=== PATIENT | male | born 1960 | race American Indian/Alaskan Native ===

== ENCOUNTER 2016-11-06 20:57 | Emergency (ER) | payer MEDICAID ==
[2016-11-06 22:19] LABS: Albumin 3.7 g/dL (3.9-5); Albumin/Globulin Ratio 1.1 %; BUN/Creatinine Ratio 10.66; Bilirubin,Total 0.2 mg/dL (0.1-1.2); Calcium 8.7 mg/dL (8.4-10.2); Chloride 101.4 mmol/L (98-107); Potassium 4.4 mmol/L (3.6-5.0); Total Protein 7.1 g/dL (6.3-8.2)
[2016-11-06 22:24] LABS: Eosinophils % (Auto) 2.3 % (0.0-4.3); Hematocrit 34.6 % (35.5-45.6); Hemoglobin 11.2 gm/dl (11.8-15.2); Mean Corpuscular HGB Conc 32 % (32-34); Mean Corpuscular Volume 76 fl (84-94); Platelet Count 291 K/mm3 (140-440); Red Blood Count 4.55 M/mm3 (3.65-5.03); Red Cell Distribution Width 16.1 % (13.2-15.2); White Blood Count 7.8 K/mm3 (4.5-11.0)
[2016-11-06 22:41] LABS: Mean Corpuscular Hemoglobin 25 pg (28-32)
[2016-11-06] MEDS ORDERED: PEPCID PO ONE (23:50)
[2016-11-06] MEDS ORDERED: ULTRAM PO ONE (23:50)
--- NOTE | 2016-11-07 00:01 | Emergency Department Report ---
ED Psych HPI - General Chief Complaint: Psych Stated Complaint: ABD PAIN Time Seen by Provider: 11/06/16 23:30 Source: patient Mode of arrival: Ambulatory Limitations: No Limitations - History of Present Illness Initial Comments: 56-year-old male with a past medical history of diabetes, hypertension, and psychiatric disorder presents to the hospital complains of hallucinations, suicidal ideation, and abdominal pain. Patient stated he has been here reports intermittent times one year. They have been increased for the last several days telling him to give himself by overdose and stabbing. Patient has homicidal ideation towards one particular person. Patient has 3 previous attempts in the past including cutting his wrist, overdosing, and thinking about using bleach in a syringe. Patient complains of 4/10 upper abdominal pain which he describes as reflux. Pain worse with palpation. Patient has been experiencing pain for the past 2-3 days. Patient has 4 episodes of vomiting yesterday but none today. Patient is having intermittent diarrhea. No reports of melena, hematochezia, hematemesis, or fever. Patient has been out of his psychiatric medications and insulin for 2-3 months. He has been compliant with his blood pressure medication lisinopril. - Related Data Home Medications Medication Instructions Recorded Confirmed Last Taken Insulin Aspart Protam & Aspart 8 units SQ QAC 05/22/16 11/07/16 Unknown [NovoLOG Mix 70-30 Flexpen] Insulin Glargine [Lantus] 20 unit SUB-Q QHS 05/22/16 11/07/16 Unknown Lisinopril [Zestril TAB] 40 tab PO QDAY 05/22/16 11/07/16 Unknown Quetiapine Fumarate [Seroquel] 300 mg PO QDAY 05/22/16 11/07/16 Unknown Allergies Allergy/AdvReac Type Severity Reaction Status Date / Time ibuprofen [From Motrin] AdvReac Vomiting Verified 11/07/16 05:06 ED Review of Systems ROS: Stated complaint: ABD PAIN Other details as noted in HPI Comment: All other systems reviewed and negative Other: Constitutional: No fevers chills Eyes: No eye pain visual changes ENT: No ear pain or throat pain Neck: Denies pain Respiratory: Denies cough wheezing shortness of breath Cardiovascular: Denies chest pain, palpitations, syncope GI: As per HPI : Denies dysuria Musculoskeletal: Denies back pain, joint swelling Skin: Denies rash, lesions, erythema Neurologic: Denies headache, numbness, weakness Psychiatric: As per HPI ED Past Medical Hx - Past Medical History Previous Medical History?: Yes Hx Hypertension: Yes Hx Diabetes: Yes Hx Psychiatric Treatment: Yes (SI) - Surgical History Past Surgical History?: Yes Additional Surgical History: Rt knee - Social History Smoking Status: Current Every Day Smoker Substance Use Type: Alcohol - Medications Home Medications: Home Medications Medication Instructions Recorded Confirmed Last Taken Type Insulin Aspart Protam & Aspart 8 units SQ QAC 05/22/16 11/07/16 Unknown History [NovoLOG Mix 70-30 Flexpen] Insulin Glargine [Lantus] 20 unit SUB-Q QHS 05/22/16 11/07/16 Unknown History Lisinopril [Zestril TAB] 40 tab PO QDAY 05/22/16 11/07/16 Unknown History Quetiapine Fumarate [Seroquel] 300 mg PO QDAY 05/22/16 11/07/16 Unknown History ED Physical Exam - General Limitations: No Limitations - Other Other exam information: General: No limitations, patient is alert in no acute distress Head exam: Atraumatic, normocephalic Eyes exam: Normal appearance ENT: Moist mucous membrane, normal oropharynx Neck exam: Normal inspection, full range of motion Respiratory exam: Clear to auscultation bilateral, no wheezes, rales, crackles Cardiovascular: Normal rate and rhythm, normal heart sounds Abdomen: Soft, nondistended, mild epigastric tenderness, with normal bowel sounds, no rebound, or guarding Extremity: Full range of motion normal inspection no deformity Back: Normal Inspection, full range of motion, no tenderness Neurologic: Alert, oriented x3, cranial nerves intact, no motor or sensory deficit Psychiatric: normal affect, normal mood Skin: Warm, dry, intact ED Course Vital Signs 11/06/16 11/06/16 11/07/16 21:25 22:25 00:41 Temperature 98.4 F 98.8 F Pulse Rate 94 H 98 H Respiratory 20 16 20 Rate Blood Pressure Blood Pressure 157/105 154/89 [Right] O2 Sat by Pulse 100 95 Oximetry 11/07/16 11/07/16 11/07/16 01:29 05:33 11:35 Temperature Pulse Rate 88 84 90 Respiratory 20 24 Rate Blood Pressure 119/70 Blood Pressure 146/92 173/93 [Right] O2 Sat by Pulse 95 98 Oximetry 11/07/16 11/07/16 11/08/16 12:30 22:00 10:40 Temperature 98.5 F Pulse Rate 73 79 Respiratory 24 18 Rate Blood Pressure 146/66 Blood Pressure 93/66 [Right] O2 Sat by Pulse 98 98 Oximetry 11/08/16 12:45 Temperature Pulse Rate Respiratory 20 Rate Blood Pressure Blood Pressure [Right] O2 Sat by Pulse 98 Oximetry - Reevaluation(s) Reevaluation #1: 11/07/16 05:05 I am still awaiting urine collection at this time. Pt states that he provided a urine and refuses to provide another sample. Lab does not have the urine in the lab and I tried to explain to patient that we just need him to urinate in a cup when he has to go again. Patient is refusing stating he would not urinate in a cup that he is aggravated that we keep asking him for urine. We are at a standstill and cannot progress until we get a urine sample. Patient is becoming more belligerent and therefore Ant, Lucyl, and Raulito ordered so that we may obtain the urine and will forward with medical clearance. ED Medical Decision Making - Lab Data Result diagrams: 11/06/16 21:40 11/06/16 21:40 Lab Results 11/06/16 11/06/16 11/06/16 Range/Units 21:40 21:40 21:40 WBC 7.8 (4.5-11.0) K/mm3 RBC 4.55 (3.65-5.03) M/mm3 Hgb 11.2 L (11.8-15.2) gm/dl Hct 34.6 L (35.5-45.6) % MCV 76 L (84-94) fl MCH 25 L (28-32) pg MCHC 32 (32-34) % RDW 16.1 H (13.2-15.2) % Plt Count 291 (140-440) K/mm3 Lymph % (Auto) 18.1 (13.4-35.0) % Bay % (Auto) 8.3 H (0.0-7.3) % Eos % (Auto) 2.3 (0.0-4.3) % Baso % (Auto) 1.0 (0.0-1.8) % Lymph # 1.4 (1.2-5.4) K/mm3 Bay # 0.6 (0.0-0.8) K/mm3 Eos # 0.2 (0.0-0.4) K/mm3 Baso # 0.1 (0.0-0.1) K/mm3 Seg Neutrophils % 70.3 H (40.0-70.0) % Seg Neutrophils # 5.5 (1.8-7.7) K/mm3 Sodium 135 L (137-145) mmol/L Potassium 4.4 (3.6-5.0) mmol/L Chloride 101.4 (98-107) mmol/L Carbon Dioxide 19 L (22-30) mmol/L Anion Gap 19 mmol/L BUN 16 (9-20) mg/dL Creatinine 1.5 (0.8-1.5) mg/dL Estimated GFR 58 ml/min BUN/Creatinine Ratio 10.66 % Glucose 277 H (75-100) mg/dL POC Glucose (70-105) Calcium 8.7 (8.4-10.2) mg/dL Total Bilirubin 0.2 (0.1-1.2) mg/dL AST 29 (5-40) units/L ALT 30 (7-56) units/L Alkaline Phosphatase 122 (35-129) units/L Total Protein 7.1 (6.3-8.2) g/dL Albumin 3.7 L (3.9-5) g/dL Albumin/Globulin Ratio 1.1 % Lipase 56 (13-60) units/L Urine Color (Yellow) Urine Turbidity (Clear) Urine pH (5.0-7.0) Ur Specific [place] (1.003-1.030) Urine Protein (Negative) mg/dL Urine Glucose (UA) (Negative) mg/dL Urine Ketones (Negative) mg/dL Urine Blood (Negative) Urine Nitrite (Negative) Urine Bilirubin (Negative) Urine Urobilinogen (<2.0) mg/dL Ur Leukocyte Esterase (Negative) Urine WBC (Auto) (0.0-6.0) /HPF Urine RBC (Auto) (0.0-6.0) /HPF Urine Opiates Screen Urine Methadone Screen Ur Barbiturates Screen Ur Phencyclidine Scrn Ur Amphetamines Screen U Benzodiazepines Scrn Urine Cocaine Screen U Marijuana (THC) Screen Drugs of Abuse Note Plasma/Serum Alcohol < 0.01 (0-0.07) gm% 11/07/16 11/07/16 11/07/16 Range/Units 00:28 05:32 05:32 WBC (4.5-11.0) K/mm3 RBC (3.65-5.03) M/mm3 Hgb (11.8-15.2) gm/dl Hct (35.5-45.6) % MCV (84-94) fl MCH (28-32) pg MCHC (32-34) % RDW (13.2-15.2) % Plt Count (140-440) K/mm3 Lymph % (Auto) (13.4-35.0) % Bay % (Auto) (0.0-7.3) % Eos % (Auto) (0.0-4.3) % Baso % (Auto) (0.0-1.8) % Lymph # (1.2-5.4) K/mm3 Bay # (0.0-0.8) K/mm3 Eos # (0.0-0.4) K/mm3 Baso # (0.0-0.1) K/mm3 Seg Neutrophils % (40.0-70.0) % Seg Neutrophils # (1.8-7.7) K/mm3 Sodium (137-145) mmol/L Potassium (3.6-5.0) mmol/L Chloride (98-107) mmol/L Carbon Dioxide (22-30) mmol/L Anion Gap mmol/L BUN (9-20) mg/dL Creatinine (0.8-1.5) mg/dL Estimated GFR ml/min BUN/Creatinine Ratio % Glucose (75-100) mg/dL POC Glucose 270 H (70-105) Calcium (8.4-10.2) mg/dL Total Bilirubin (0.1-1.2) mg/dL AST (5-40) units/L ALT (7-56) units/L Alkaline Phosphatase (35-129) units/L Total Protein (6.3-8.2) g/dL Albumin (3.9-5) g/dL Albumin/Globulin Ratio % Lipase (13-60) units/L Urine Color Yellow (Yellow) Urine Turbidity Clear (Clear) Urine pH 5.0 (5.0-7.0) Ur Specific [place] 1.019 (1.003-1.030) Urine Protein 100 mg/dl (Negative) mg/dL Urine Glucose (UA) 50 (Negative) mg/dL Urine Ketones Neg (Negative) mg/dL Urine Blood Neg (Negative) Urine Nitrite Neg (Negative) Urine Bilirubin Neg (Negative) Urine Urobilinogen 2.0 (<2.0) mg/dL Ur Leukocyte Esterase Neg (Negative) Urine WBC (Auto) < 1.0 (0.0-6.0) /HPF Urine RBC (Auto) 1.0 (0.0-6.0) /HPF Urine Opiates Screen Presumptive negative Urine Methadone Screen Presumptive negative Ur Barbiturates Screen Presumptive negative Ur Phencyclidine Scrn Presumptive negative Ur Amphetamines Screen Presumptive negative U Benzodiazepines Scrn Presumptive negative Urine Cocaine Screen Presumptive positive U Marijuana (THC) Screen Presumptive negative Drugs of Abuse Note Disclamer Plasma/Serum Alcohol (0-0.07) gm% 11/07/16 11/07/16 11/07/16 Range/Units 06:13 11:32 17:27 WBC (4.5-11.0) K/mm3 RBC (3.65-5.03) M/mm3 Hgb (11.8-15.2) gm/dl Hct (35.5-45.6) % MCV (84-94) fl MCH (28-32) pg MCHC (32-34) % RDW (13.2-15.2) % Plt Count (140-440) K/mm3 Lymph % (Auto) (13.4-35.0) % Bay % (Auto) (0.0-7.3) % Eos % (Auto) (0.0-4.3) % Baso % (Auto) (0.0-1.8) % Lymph # (1.2-5.4) K/mm3 [place] # (0.0-0.8) K/mm3 Eos # (0.0-0.4) K/mm3 Baso # (0.0-0.1) K/mm3 Seg Neutrophils % (40.0-70.0) % Seg Neutrophils # (1.8-7.7) K/mm3 Sodium (137-145) mmol/L Potassium (3.6-5.0) mmol/L Chloride (98-107) mmol/L Carbon Dioxide (22-30) mmol/L Anion Gap mmol/L BUN (9-20) mg/dL Creatinine (0.8-1.5) mg/dL Estimated GFR ml/min BUN/Creatinine Ratio % Glucose (75-100) mg/dL POC Glucose 144 H 208 H 246 H (70-105) Calcium (8.4-10.2) mg/dL Total Bilirubin (0.1-1.2) mg/dL AST (5-40) units/L ALT (7-56) units/L Alkaline Phosphatase (35-129) units/L Total Protein (6.3-8.2) g/dL Albumin (3.9-5) g/dL Albumin/Globulin Ratio % Lipase (13-60) units/L Urine Color (Yellow) Urine Turbidity (Clear) Urine pH (5.0-7.0) Ur Specific [place] (1.003-1.030) Urine Protein (Negative) mg/dL Urine Glucose (UA) (Negative) mg/dL Urine Ketones (Negative) mg/dL Urine Blood (Negative) Urine Nitrite (Negative) Urine Bilirubin (Negative) Urine Urobilinogen (<2.0) mg/dL Ur Leukocyte Esterase (Negative) Urine WBC (Auto) (0.0-6.0) /HPF Urine RBC (Auto) (0.0-6.0) /HPF Urine Opiates Screen Urine Methadone Screen Ur Barbiturates Screen Ur Phencyclidine Scrn Ur Amphetamines Screen U Benzodiazepines Scrn Urine Cocaine Screen U Marijuana (THC) Screen Drugs of Abuse Note Plasma/Serum Alcohol (0-0.07) gm% 11/08/16 11/08/16 11/08/16 Range/Units 07:51 11:35 16:12 WBC (4.5-11.0) K/mm3 RBC (3.65-5.03) M/mm3 Hgb (11.8-15.2) gm/dl Hct (35.5-45.6) % MCV (84-94) fl MCH (28-32) pg MCHC (32-34) % RDW (13.2-15.2) % Plt Count (140-440) K/mm3 Lymph % (Auto) (13.4-35.0) % Bay % (Auto) (0.0-7.3) % Eos % (Auto) (0.0-4.3) % Baso % (Auto) (0.0-1.8) % Lymph # (1.2-5.4) K/mm3 [place] # (0.0-0.8) K/mm3 Eos # (0.0-0.4) K/mm3 Baso # (0.0-0.1) K/mm3 Seg Neutrophils % (40.0-70.0) % Seg Neutrophils # (1.8-7.7) K/mm3 Sodium (137-145) mmol/L Potassium (3.6-5.0) mmol/L Chloride (98-107) mmol/L Carbon Dioxide (22-30) mmol/L Anion Gap mmol/L BUN (9-20) mg/dL Creatinine (0.8-1.5) mg/dL Estimated GFR ml/min BUN/Creatinine Ratio % Glucose (75-100) mg/dL POC Glucose 115 H 211 H 203 H (70-105) Calcium (8.4-10.2) mg/dL Total Bilirubin (0.1-1.2) mg/dL AST (5-40) units/L ALT (7-56) units/L Alkaline Phosphatase (35-129) units/L Total Protein (6.3-8.2) g/dL Albumin (3.9-5) g/dL Albumin/Globulin Ratio % Lipase (13-60) units/L Urine Color (Yellow) Urine Turbidity (Clear) Urine pH (5.0-7.0) Ur Specific [place] (1.003-1.030) Urine Protein (Negative) mg/dL Urine Glucose (UA) (Negative) mg/dL Urine Ketones (Negative) mg/dL Urine Blood (Negative) Urine Nitrite (Negative) Urine Bilirubin (Negative) Urine Urobilinogen (<2.0) mg/dL Ur Leukocyte Esterase (Negative) Urine WBC (Auto) (0.0-6.0) /HPF Urine RBC (Auto) (0.0-6.0) /HPF Urine Opiates Screen Urine Methadone Screen Ur Barbiturates Screen Ur Phencyclidine Scrn Ur Amphetamines Screen U Benzodiazepines Scrn Urine Cocaine Screen U Marijuana (THC) Screen Drugs of Abuse Note Plasma/Serum Alcohol (0-0.07) gm% - Differential Diagnosis gastroenteritis, pancreatitis, hepatitis, suicidal ideation, psychosis Critical care attestation.: If time is entered above; I have spent that time in minutes in the direct care of this critically ill patient, excluding procedure time. ED Disposition Clinical Impression: Psychosis, Cocaine use disorder, mild, abuse, Diabetes, Suicidal intent Disposition: DC/TX PSY HOSP/PSY UNIT Is pt being admited?: No Condition: Stable Time of Disposition: 06:00
[2016-11-07] MEDS ORDERED: BENADRYL IM ONE (05:05)
[2016-11-07] MEDS ORDERED: GEODON IM ONE (05:05)
[2016-11-07] MEDS ORDERED: ATIVAN IM ONE (05:05)
[2016-11-07 05:40] LABS: Urine Drugs of Abuse Note Disclamer
[2016-11-07 05:46] LABS: Bilirubin,Urine NEG (Negative); Blood,Urine NEG (Negative); Ketones,Urine NEG (Negative); Leukocyte Esterase,Urine NEG (Negative); Nitrite,Urine NEG (Negative); WBC,Urine < 1.0 /HPF (0.0-6.0)
[2016-11-07] MEDS ORDERED: MILK OF MAGNESIA PO PRN (06:02)
[2016-11-07] MEDS ORDERED: ALUM-MAG HYDROX-SIMETH 200-200-20MG/5ML PO PRN (06:02)
[2016-11-07] MEDS ORDERED: TYLENOL PO PRN (06:02)
[2016-11-07] MEDS ORDERED: [UNRECOGNIZED DRUG - OTHER] SQ SCH (07:30)
[2016-11-07] MEDS ORDERED: INSULIN ASPART PROTAMINE SQ SCH (07:30)
[2016-11-07] MEDS: ZESTRIL PO SCH (11:35)
--- NOTE | 2016-11-07 16:47 | Consultation ---
History of Present Illness - Reason for Consult Consult date: 11/07/16 Reason for consult: Command AH with SI - Chief Complaint Chief complaint: CHIEF COMPLAINT IN PATIENTS WORDS: Patient could not verbalize HISTORY OF PRESENT ILLNESS REQUIRING ADMISSION TO INPATIENT LEVEL OF CARE: (Describe the onset of Illness, Intensity of Symptoms, and Circumstances Leading to Admission) This is a 56-year-old disabled male with a past psychiatric history of bipolar disorder and/or schizophrenia who now presents to the ER with complaints of command auditory hallucinations telling him to harm himself as well as others. He was evaluated by the ER physician who does not note any acute medical problems. Patient was given a when necessary due to severe agitation. His U tox is currently positive. On review of medical record, patient is noted to have command auditory hallucinations in addition to a severely depressed mood with suicidal thoughts. Patient has a previous history of self injury as well as suicide attempt via overdose. Currently he continues to have intrusive ego dystonic thoughts about committing suicide. On presentation he is withdrawn and somewhat sedated, reports symptoms of severe depression and anxiety as well as psychotic symptoms. PSYCHIATRIC REVIEW OF SYSTEMS: Depression: Sad/low mood, suicidal thoughts Chikis: None noted Psychosis: Command auditory hallucinations Anxiety/ OCD/ PTSD: Somatic as well as cognitive anxiety symptoms present Suicidality: Present with a plan to overdose and/or stab himself Other Self-Injurious Behavior: None noted during this ER presentation Violent/ Aggressive Behavior: Patient was agitated in the ER and required a combination of Geodon and Ativan CURRENT MEDICATIONS: ( Psychiatric and Non-psychiatric ) Seroquel Lantus Zestril ALLERGIES: Ibuprofen PAST PSYCHIATRIC HISTORY: ( Prior Treatment, Precipitating Factors, Diagnosis, and Course of Treatment ) [facility] last hospitalization one year ago PAST PSYCHIATRIC MEDICATION TRIALS: Unknown to the patient MEDICAL HISTORY: (Chronic and Acute Illnesses, Current Medical Treatment, Recent Hospitalizations) Hypertension DM HISTORY OF TRAUMA/ABUSE: Unable to obtain DRUG / ALCOHOL ABUSE HISTORY: Unable to obtain Detoxification / Withdrawal: none noted clinical examination, with a negative urine toxicology screen SOCIAL HISTORY: (Educational Level, Employment, Support System, Interpersonal Relationships) Patient is disabled, his housing arrangements are unknown to myself FAMILY HISTORY: Psychiatric/Substance Abuse Unknown MENTAL STATUS EXAM: Consciousness: alert and responding to external stimuli General Appearance: In hospital gown Eye Contact: Poor Attitude / Behavior: Not well related Sensorium: Sedated Psychomotor & Musculoskeletal Activity: Sleeping on a stretcher Mood: Did not report Affect: Blunted Speech / Language: Dysarthric and slurred Thought Processes: Perseverative Thought Content: Suicidal thoughts, ruminations, frequent worries about past as well as future Perception: Auditory hallucinations that are command in nature Orientation: person, place Concentration/Attention WORLD backwards: Unable to obtain Memory Immediate Digit Span (0-7-6-9-3-1-5): Unable to obtain Memory Recent (Objects: Lamp, Umbrella, and Telephone) Patient Response: Unable to obtain Memory Remote (Name as many presidents as you can starting with current one and going backwards) Patient Response: 3 Judgment What would you do if you smelled smoke in a crowded movie theater?: poor/impulsive Insight: poor Intelligence Vocabulary, general fund of knowledge, educational level : Below Average Capacity of ADLs: Independent STRENGTHS: Previously admitted here to treatment PSYCHOSOCIAL AND ENVIRONMENTAL STRESSORS: Disabled ADMITTING DIAGNOSES Psychiatric: Bipolar disorder most recent episode depressed with psychotic features Medical: n/a X Upon Review of the patients status as stated above, there is reasonable expectation that the patient will make timely and significant practical improvement in the presenting symptoms as a result of the inpatient psychiatric hospitalization. EXPECTATION OF IMPROVEMENT: Fair __Medication Education provided; including medication risks and benefits __Black Box Warning Education given for SSRI/SNRI: Medication: INITIAL PLAN OF CARE AND TREATMENT GOALS: Start Seroquel 200 mg at bedtime INITIAL DISCHARGE PLAN: Admit to inpatient psychiatric hospitalization Medications and Allergies Allergies Allergy/AdvReac Type Severity Reaction Status Date / Time ibuprofen [From Motrin] AdvReac Vomiting Verified 11/07/16 05:06 Home Medications Medication Instructions Recorded Confirmed Last Taken Type Insulin Aspart Protam & Aspart 8 units SQ QAC 05/22/16 11/07/16 Unknown History [NovoLOG Mix 70-30 Flexpen] Insulin Glargine [Lantus] 20 unit SUB-Q QHS 05/22/16 11/07/16 Unknown History Lisinopril [Zestril TAB] 40 tab PO QDAY 05/22/16 11/07/16 Unknown History Quetiapine Fumarate [Seroquel] 300 mg PO QDAY 05/22/16 11/07/16 Unknown History Active Meds: Active Medications Acetaminophen (Tylenol) 650 mg PO Q4HR PRN PRN Reason: Pain MILD(1-3)/Fever >100.5/ARNOLD Al Hydrox/Mg Hydrox/Simethicone (Alum-Mag Hydrox-Simeth 703-138-97vg/5ml) 30 ml PO Q4HR PRN PRN Reason: Indigestion Insulin Detemir (Levemir) 20 units SUB-Q QHS [facility] Insulin Human Isoph/Insulin Regular (Novolin 70/30) 8 unit SUB-Q AC [facility] Last Admin: 11/07/16 09:10 Dose: 8 unit Lisinopril (Zestril) 40 mg PO QDAY [facility] Last Admin: 11/07/16 11:35 Dose: 40 mg Magnesium Hydroxide (Milk Of Magnesia) 30 ml PO Q12HR PRN PRN Reason: Constipation Quetiapine Fumarate (Seroquel) 300 mg PO QDAY [facility] Last Admin: 11/07/16 11:35 Dose: 300 mg Mental Status Exam - Vital signs Last Vital Signs Temp 98.8 F 11/06/16 22:25 Pulse 90 11/07/16 11:35 Resp 24 11/07/16 12:30 BP 119/70 11/07/16 11:35 Pulse Ox 98 11/07/16 12:30 Results Result Diagrams: 11/06/16 21:40 11/06/16 21:40 Abnormal lab results 11/06/16 11/06/16 11/07/16 Range/Units 21:40 21:40 00:28 Hgb 11.2 L (11.8-15.2) gm/dl Hct 34.6 L (35.5-45.6) % MCV 76 L (84-94) fl MCH 25 L (28-32) pg RDW 16.1 H (13.2-15.2) % [place] % (Auto) 8.3 H (0.0-7.3) % Seg Neutrophils % 70.3 H (40.0-70.0) % Sodium 135 L (137-145) mmol/L Carbon Dioxide 19 L (22-30) mmol/L Glucose 277 H (75-100) mg/dL POC Glucose 270 H (70-105) Albumin 3.7 L (3.9-5) g/dL 11/07/16 Range/Units 06:13 Hgb (11.8-15.2) gm/dl Hct (35.5-45.6) % MCV (84-94) fl MCH (28-32) pg RDW (13.2-15.2) % [place] % (Auto) (0.0-7.3) % Seg Neutrophils % (40.0-70.0) % Sodium (137-145) mmol/L Carbon Dioxide (22-30) mmol/L Glucose (75-100) mg/dL POC Glucose 144 H (70-105) Albumin (3.9-5) g/dL All other labs normal.
[2016-11-07] MEDS ORDERED: NON-FORMULARY (Insulin Glargine 20 UNIT) SUB-Q SCH (22:00)
[2016-11-07] MEDS ORDERED: LEVEMIR SUB-Q SCH (22:00)
[2016-11-08] MEDS: ZESTRIL PO SCH (10:40)
[2016-11-08 14:23] VITALS: BP 146/66
[2016-11-08] MEDS ORDERED: ATIVAN ONE (15:19)
[2016-11-08] MEDS ORDERED: GEODON IM ONE (15:20)
[2016-11-08] MEDS ORDERED: WATER FOR INJ (PF) 10 ML ONE (15:20)
--- NOTE | 2016-11-08 16:13 | Progress Note ---
Subjective - Reason for Consult Consult date: 11/08/16 Reason for consult: psychiatry - Chief Complaint Chief complaint: This is a 56-year-old disabled male with a past psychiatric history of bipolar disorder and/or schizophrenia who presented to the ER with complaints of command auditory hallucinations telling him to harm himself as well as others. He was evaluated by the ER physician who does not note any acute medical problems. His U tox is currently positive for cocaine. On review of medical record, patient is noted to have command auditory hallucinations in addition to a severely depressed mood with suicidal thoughts. Patient has a previous history of self injury as well as suicide attempt via overdose. Patient is currently irritable, depressed, and reporting auditory hallucinations commanding him to harm himself and others. He is not aggressive. Mental Status Exam - Vital signs Last Vital Signs Temp 98.5 F 11/07/16 22:00 Pulse 79 11/08/16 10:40 Resp 20 11/08/16 12:45 BP 146/66 11/08/16 10:40 Pulse Ox 98 11/08/16 12:45 - Exam Narrative exam: SI, HI, Orientation: time, place, person Affect: depressed Mood: congruent with affect Thought content: paranoia Thought Process: Intact Perceptions: auditory, command, hallucinations Speech: normal rate and pattern Concentration: focused Motor activity: normal Level of consciousness: alert Memory: Intact Sleep Symptoms: Difficulty Falling Asleep Appetite: decreased Interaction: cooperative Assessment and Plan Impression: Distressing psychotic symptoms Schizophrenia paranoid type per history Cocaine use Recommendation: Continue 1013 Pursue inpatient hospitalization Continue Seroquel 200mg hs for mood and psychotic symptoms. - Patient Problems (1) Psychosis Current Visit: Yes Status: Acute Qualifiers: Psychosis type: P Schizoaffective disorder type: S Schizophrenia type: S (2) Cocaine use disorder, mild, abuse Current Visit: Yes Status: Acute
== END 2016-11-08 18:53 ==
LOC: EEVIPCON 20:57 → ED 20:57
DX: R45.851 Suicidal ideations (principal); E11.9 Type 2 diabetes mellitus without complications; F29 Unspecified psychosis not due to a substance or known physiological condition; F14.10 Cocaine abuse, uncomplicated; I10 Essential (primary) hypertension; F17.200 Nicotine dependence, unspecified, uncomplicated
CPT/HCPCS: 36415; 80053; 80307; 81001; 82962; 83690; 85025; 96372; 99285; G0480; J1200; J2060; J3486; 80320; J1815; J1818

== ENCOUNTER 2017-03-09 14:20 | Emergency (ER) | payer MEDICAID ==
--- NOTE | 2017-03-09 16:10 | Emergency Department Report ---
Entered by JANELL DSOUZA, acting as scribe for ALBA CHO NP. Chief Complaint: Psych Stated Complaint: hallucinations, SI Time Seen by Provider: 03/09/17 16:03 - HPI History of Present Illness: 56 y/o male presents needing evaluation of mental health after reporting SI that started 2 days ago. Sx include auditory hallucinations with voices telling him to kill himself per pt. He lists a secondary complaint of right hand pain. Pt reports he has SI thughts before with a plan to kill himself by OD, shooting himself and drinking bleach. - ROS Review of Systems: +SI with plan +auditory hallucinations +right hand pain -HI - Exam Vital Signs: Vital Signs 03/09/17 16:02 Temperature 97.8 F Pulse Rate 81 Respiratory 18 Rate Blood Pressure 171/91 O2 Sat by Pulse 99 Oximetry Physical Exam: Psych: SI with plan to kill himself by OD, drinking bleach or shooting himself with his gun. MSE screening note: Focused history and physical exam performed. Due to findings the following was ordered: labs, xr, mhe ED Disposition for MSE Condition: Stable This documentation as recorded by the scribeMEET RYAN,accurately reflects the service I personally performed and the decisions made by ,ALBA CHO , [employer].
--- NOTE | 2017-03-09 23:53 | Emergency Department Report ---
HPI - General Chief Complaint: Psych Time Seen by Provider: 03/09/17 23:03 - HPI HPI: The patient is a 56-year-old male with a history of diabetes, whom presents for evaluation of mental health. Patient reports severe sadness for the 2 days, worse and constant for the past one day, improved with rest, associated with suicidal ideations. He also reports auditory command hallucinations instructing him to slit his wrists or poison himself.The patient denies fever, headache, unexplained weight loss or weight gain, heat or cold intolerance, skin , hair, or nail changes, neuro deficits, homicidal ideations. ED Past Medical Hx - Past Medical History Hx Hypertension: Yes Hx Diabetes: Yes Hx Psychiatric Treatment: Yes (schizophrenic) - Surgical History Additional Surgical History: Rt knee - Social History Smoking Status: Never Smoker Substance Use Type: None - Medications Home Medications: Home Medications Medication Instructions Recorded Confirmed Last Taken Type Insulin Aspart Protam & Aspart 8 units SQ QAC 05/22/16 11/07/16 Unknown History [NovoLOG Mix 70-30 Flexpen] Insulin Glargine [Lantus] 20 unit SUB-Q QHS 05/22/16 11/07/16 Unknown History Lisinopril [Zestril TAB] 40 tab PO QDAY 05/22/16 11/07/16 Unknown History Quetiapine Fumarate [Seroquel] 300 mg PO QDAY 05/22/16 11/07/16 Unknown History ED Review of Systems ROS: Stated complaint: RIGHT HAND PAIN Other details as noted in HPI Constitutional: denies: fever ENT: denies: throat or neck pain Respiratory: denies: cough, shortness of breath Cardiovascular: denies: chest pain Endocrine: denies unexplained weight loss or gain Gastrointestinal: denies: abdominal pain, nausea Genitourinary: denies: dysuria Musculoskeletal: denies: leg swelling Skin: denies: rash Neurological: denies: headache Hematological/Lymphatic: denies: easy bleeding or easy bruising Psych: reports sadness and hopelessness Physical Exam - Physical Exam Vital Signs: Vital Signs 03/09/17 16:02 Temperature 97.8 F Pulse Rate 81 Respiratory 18 Rate Blood Pressure 171/91 O2 Sat by Pulse 99 Oximetry Physical Exam: General: well-nourished, well-developed, no acute distress Head: Normocephalic, atraumatic Eyes: normal sclera ENT: Mucous membranes are pale and dry Neck: trachea midline, neck supple, No neck stiffness, no cervical adenopathy Respiratory: Breath sounds equal bilaterally, no wheezing, rales, or rhonchi Cardio: S1 and S2 present, no murmurs, rubs, gallops, capillary refill is delayed Abdomen: Normoactive bowel sounds, soft abdomen, no tenderness Chest WALL/Back: No tenderness to palpation of the chest wall, no CVA tenderness with percussion Musc: No pitting edema Skin: No rash Neuro: no facial drooping, normal speech Psych: Flat affect, poor insight, depressed mood, positive suicidal ideation, positive hallucinations ED Course Vital Signs 03/09/17 16:02 Temperature 97.8 F Pulse Rate 81 Respiratory 18 Rate Blood Pressure 171/91 O2 Sat by Pulse 99 Oximetry ED Medical Decision Making - Lab Data Result diagrams: 03/09/17 23:58 03/09/17 23:58 - Medical Decision Making The patient was seen and examined by myself. The patient is placed on a athletic monitor and continuous pulse ox. On initial evaluation, the patient was found to be in no distress. Labs are obtained. Lab results revealed elevated glucose of 500, normal bicarbonate and anion gap, not consistent with DKA, and otherwise labs are grossly unremarkable. The patient given 2 L normal saline fluid bolus and IV insulin for treatment of hyperglycemia. The patient will be medically cleared once Glucose <199. Mental health is consulted. Mental health evaluates the patient and agrees that the patient is at risk of harm to self. A 1013 is completed. The patient will be admitted to a psychiatric facility once bed placement is obtained. Critical care attestation.: If time is entered above; I have spent that time in minutes in the direct care of this critically ill patient, excluding procedure time. ED Disposition Clinical Impression: Suicidal ideation, Acute psychosis, Dehydration, Acute hyperglycemia Disposition: [id number]/TX-[id number] PSY HOSP/PSY UNIT Is pt being admited?: No Does the pt Need Aspirin: No Condition: Serious Referrals: PRIMARY CARE, [Primary Care Provider] - 3-5 Days Time of Disposition: 23:52
[2017-03-10 00:30] LABS: Basophils % (Auto) 0.6 % (0.0-1.8); Eosinophils % (Auto) 2.3 % (0.0-4.3); Hematocrit 40.1 % (35.5-45.6); Hemoglobin 12.6 gm/dl (11.8-15.2); Mean Corpuscular HGB Conc 32 % (32-34); Mean Corpuscular Volume 77 fl (84-94); Platelet Count 234 K/mm3 (140-440); Red Blood Count 5.22 M/mm3 (3.65-5.03); Red Cell Distribution Width 17.4 % (13.2-15.2); White Blood Count 6.4 K/mm3 (4.5-11.0)
[2017-03-10 00:38] LABS: Alanine Aminotransferase 18 units/L (7-56); Albumin 3.8 g/dL (3.9-5); Albumin/Globulin Ratio 1.1 %; Alkaline Phosphatase 136 units/L (35-129); BUN/Creatinine Ratio 13.57; Blood Urea Nitrogen 19 mg/dL (9-20); Calcium 9.3 mg/dL (8.4-10.2); Carbon Dioxide 22 mmol/L (22-30); Potassium 4.7 mmol/L (3.6-5.0); Sodium 131 mmol/L (137-145); Total Protein 7.4 g/dL (6.3-8.2)
[2017-03-10 00:39] LABS: Mean Corpuscular Hemoglobin 24 pg (28-32)
[2017-03-10 00:54] LABS: Anion Gap 20 mmol/L
[2017-03-10 01:01] LABS: Glucose 586 mg/dL (75-100)
[2017-03-10] MEDS ORDERED: NACL 0.9% 1000 ML 2,000 ML IV ONE (02:46)
[2017-03-10] MEDS ORDERED: HALDOL IM ONE (03:16)
[2017-03-10] MEDS ORDERED: ATIVAN IV ONE (03:17)
[2017-03-10 09:29] LABS: Urine Drugs of Abuse Note Disclamer
[2017-03-10 09:47] LABS: Bilirubin,Urine NEG (Negative); Blood,Urine MOD (Negative); Ketones,Urine NEG (Negative); Leukocyte Esterase,Urine NEG (Negative); Nitrite,Urine NEG (Negative); Protein,Urine <15 mg/dL mg/dL (Negative); Urobilinogen,Urine < 2.0 mg/dL (<2.0); WBC,Urine < 1.0 /HPF (0.0-6.0)
[2017-03-10] MEDS ORDERED: INSULIN ASPART PROTAMINE SQ SCH (11:30)
[2017-03-10] MEDS ORDERED: [UNRECOGNIZED DRUG - OTHER] SQ SCH (11:30)
[2017-03-10] MEDS ORDERED: ZESTRIL ONE (12:05)
[2017-03-10] MEDS: ZESTRIL PO SCH (12:27)
--- NOTE | 2017-03-10 13:33 | Consultation ---
History of Present Illness - Reason for Consult Consult date: 03/10/17 Reason for consult: Mental Health Evaluation Requesting physician: RON FLORENTINO - Chief Complaint Chief complaint: "I just tired" - History of Present Psychiatric Illness The patient is a 56-year-old male with a history of diabetes presenting to [facility] for a MH evaluation. Today patient is calm, but irritable during the assessment. He stated being sad and suicidal with AH's the past couple days. He would not tell me why he feel suicidal. During the assessment he would close his eyes and wouldn't answer some of the questions asked of him. Patient did admit to command AH's telling him to kill himself by overdosing. He would not tell me if he attempted suicide in the past when asked. The patient would not answer anymore questions and decided to lay down and turn away from me. Per his UDS, patient is positive for cocaine and his alcohol serum is <0.01. Medications and Allergies Allergies Allergy/AdvReac Type Severity Reaction Status Date / Time acetaminophen [From Tylenol] AdvReac Nausea Verified 03/09/17 16:06 ibuprofen [From Motrin] AdvReac Vomiting Verified 11/07/16 05:06 Home Medications Medication Instructions Recorded Confirmed Last Taken Type Insulin Aspart Protam & Aspart 8 units SQ QAC 05/22/16 11/07/16 Unknown History [NovoLOG Mix 70-30 Flexpen] Insulin Glargine [Lantus] 20 unit SUB-Q QHS 05/22/16 11/07/16 Unknown History Lisinopril [Zestril TAB] 40 tab PO QDAY 05/22/16 11/07/16 Unknown History Quetiapine Fumarate [Seroquel] 300 mg PO QDAY 05/22/16 11/07/16 Unknown History Active Meds: Active Medications Insulin Detemir (Levemir) 20 units SUB-Q QHS [facility] Insulin Human Isoph/Insulin Regular (Novolin 70/30) 8 unit SUB-Q QAC [facility] Last Admin: 03/10/17 12:15 Dose: 8 unit Lisinopril (Zestril) 40 mg PO QDAY [facility] Last Admin: 03/10/17 12:27 Dose: 40 mg Past psychiatric history - Past Medical History Past Medical History: diabetes Past Surgical History: No surgical history - past Psychiatric treatment and history Psych: Bipolar - Social History Social history: Lives alone Mental Status Exam - Vital signs Last Vital Signs Temp 98.6 F 03/10/17 12:00 Pulse 73 03/10/17 12:27 Resp 20 03/10/17 12:00 BP 191/73 03/10/17 12:27 Pulse Ox 95 03/10/17 08:05 - Exam Narrative exam: ROS: (+) depression, psychotic MSE: Appearance: calm, irritable Behavior: regular eye contact Speech: regular rate and tone Mood: "not well" withdrawn Affect: labile Thought Process: unable to assess Thought Content: denies HI's and VH's Motor Activity: ambulatory Cognition: A/Ox 3 Insight: limited Judgment: limited Results Result Diagrams: 03/09/17 23:58 03/09/17 23:58 Abnormal lab results 03/09/17 03/09/17 03/09/17 Range/Units 23:58 23:58 23:58 RBC 5.22 H (3.65-5.03) M/mm3 MCV 77 L (84-94) fl MCH 24 L (28-32) pg RDW 17.4 H (13.2-15.2) % [place] % (Auto) 7.8 H (0.0-7.3) % Sodium 131 L (137-145) mmol/L Chloride 94.0 L (98-107) mmol/L Glucose 586 H* (75-100) mg/dL Alkaline Phosphatase 136 H (35-129) units/L Albumin 3.8 L (3.9-5) g/dL Salicylates < 0.3 L (2.8-20.0) mg/dL All other labs normal. Assessment and Plan Assessment and plan: Impression: Mood DO. Possible Substance Induced Mood DO. Substance Use DO ( Cocaine). Today patient is calm, but irritable during the assessment. Patient has SI's and AH's. Positive for Cocaine. Patient poor historian at this time. DDx: R/O Bipolar, R/O MDD Recommendation/Plan: Continue 1013 with placement to inpatient psy services. Modified Seroquel 300 mg to HS for psychotic symptoms/mood. Discussed possible metabolic side effects of Seroquel with patient.
--- NOTE | 2017-03-10 15:39 | XRay Report ---
RIGHT HAND RADIOGRAPHS INDICATION: Pain, status post injury. COMPARISON: None similar at this institution. FINDINGS: AP, lateral and oblique right hand radiographs demonstrate moderate interphalangeal osteoarthritic changes with few overhanging osteophytes. No focal suspicious erosions. Intact remainder bony articulation and appearance. Grossly unremarkable soft tissues. No radiopaque foreign body. CONCLUSION: Right hand arthritic changes without acute bony abnormality, as described. Thank you for the opportunity to participate in this patient's care.
[2017-03-10] MEDS ORDERED: LEVEMIR SUB-Q SCH (22:00)
[2017-03-10] MEDS ORDERED: NON-FORMULARY (Insulin Glargine 20 UNIT) SUB-Q SCH (22:00)
[2017-03-11 08:03] VITALS: BP 130/54
[2017-03-11] MEDS: ZESTRIL PO SCH (10:30)
== END 2017-03-11 15:28 ==
LOC: EEVIPCON 14:20 → ED 14:20
DX: F23 Brief psychotic disorder (principal); R45.851 Suicidal ideations; E86.0 Dehydration; E11.65 Type 2 diabetes mellitus with hyperglycemia; I10 Essential (primary) hypertension; F20.9 Schizophrenia, unspecified
CPT/HCPCS: 36415; 73130; 80053; 80307; 81001; 82962; 85025; 96361; 96372; 96374; 96375; 99285; G0480; J1630; J2060; J7030; 80320; J1815; J1818